=== PATIENT | female | born 1935 | race Caucasian/White ===

== ENCOUNTER 2023-01-07 09:42 | Outpatient (CLI) | payer MEDICARE | END 2023-01-07 09:43 | disposition home or self-care (01) | LOC: RAD-FRANK 09:42 | PROVIDERS: ATTEND Nurse Practitioner Family | DX: M54.50 Low back pain, unspecified (principal); M47.816 Spondylosis without myelopathy or radiculopathy, lumbar region | CPT/HCPCS: 72100 ==

== ENCOUNTER 2023-01-17 09:11 | Observation (INO) | payer MEDICARE ==
[2023-01-17 10:41] LABS: #Basophils 0.1 thou/uL (0.0-0.2); #Eosinphils 0.1 thou/uL (0.0-0.7); #Monocytes 0.6 thou/uL (0.11-0.59); #Neutrophils 3.2 thou/uL (1.40-6.50); %Basophils 0.9 % (0.0-1.0); %Lymphocytes 26.8 % (21.0-51.0); %Monocytes 11.5 % (0.0-10.0); %Neutrophils 58.4 % (42.0-75.0); Hemoglobin 12.6 g/dL (12.0-16.0); Mean Corpuscular HGB CONC 31.5 g/dL (32.0-36.0); Mean Corpuscular Hemoglobin 27.6 pg (27.0-31.0); Mean Corpuscular Volume 87.7 fl (78.0-98.0); Mean Platelet Volume 10.5 fL (7.4-10.4); Platelet Count 171 10x3/uL (130-400); Red Blood Cell (RBC) Count 4.56 mill/uL (4.20-5.40); White Blood Cell (WBC) Count 5.4 10x3/uL (4.8-10.8)
[2023-01-17 11:04] LABS: ALT (SGPT) 9 U/L (8-55); AST (SGOT) 14 U/L (5-34); Albumin 3.4 g/dL (3.4-4.8); Alkaline Phosphatase 55 U/L (40-110); Anion Gap 11 mmol/L (10-20); BUN (Urea Nitrogen) 20 mg/dL (9.8-20.1); Bilirubin, Total 0.4 mg/dL (0.2-1.2); Calc. Creatinine Clearance 0 mL/min (70-130); Calcium 8.9 mg/dL (7.8-10.44); Carbon Dioxide 23 mmol/L (23-31); Chloride 110 mmol/L (98-107); Estimated GFR 60; Globulin 3.1 g/dL (2.4-3.5); Glucose 95 mg/dL (83-110); Potassium 4.4 mmol/L (3.5-5.1); Protein, Total 6.5 g/dL (5.8-8.1); Sodium 140 mmol/L (136-145)
[2023-01-17 11:09] LABS: Troponin I 0.012 ng/mL (< 0.028)
[2023-01-17] MEDS ORDERED: Acetaminophen 325 MG TAB PO PRN (12:51)
[2023-01-17] MEDS ORDERED: cloNIDine 0.1 MG TAB PO PRN (12:52)
[2023-01-17] MEDS ORDERED: NIFEdipine XL 30 MG TAB PO SCH (13:00)
[2023-01-17 13:43] LABS: Free T4 (Free Thyroxine) 1.1 ng/dL (0.70-1.48); Thyroid Stimulating Hormone 3.9374 uIU/mL (0.35-4.94)
[2023-01-17 15:33] LABS: Troponin I Less than 0.010 ng/mL (< 0.028)
[2023-01-17 21:28] VITALS: BMI 25.1
[2023-01-17] MEDS: Heparin 5,000 UNITS/ML VIAL SC SCH (21:37)
[2023-01-17] MEDS: Melatonin 3 MG TAB PO PRN (21:38)
[2023-01-18 05:43] LABS: Anion Gap 11 mmol/L (10-20); BUN (Urea Nitrogen) 17 mg/dL (9.8-20.1); Calc. Creatinine Clearance 41 mL/min (70-130); Carbon Dioxide 23 mmol/L (23-31); Chloride 109 mmol/L (98-107); Potassium 4.4 mmol/L (3.5-5.1); Sodium 139 mmol/L (136-145)
[2023-01-18 05:44] LABS: Calcium 8.9 mg/dL (7.8-10.44); Estimated GFR 63; Glucose 77 mg/dL (83-110)
[2023-01-18] MEDS: NIFEdipine XL 30 MG TAB PO SCH (08:57)
[2023-01-18] MEDS: Heparin 5,000 UNITS/ML VIAL SC SCH ×2 (08:57→21:19)
[2023-01-18] MEDS: Melatonin 3 MG TAB PO PRN (21:18)
[2023-01-19 05:29] LABS: Cardiac Risk 3.3 (Less than 4.5)
[2023-01-19] MEDS ORDERED: fentaNYL 50 mcg/mL 1 mL Vial ONE (07:34)
[2023-01-19] MEDS ORDERED: Midazolam HCl 2 mg/2 ml Vial ONE (07:34)
[2023-01-19] MEDS ORDERED: Lidocaine 1% w/Epinephrine 1:100K 20 ML VIAL ONE (07:35)
[2023-01-19] MEDS ORDERED: Vancomycin HCl 500 MG VIAL ONE ×2 (07:35→07:37)
[2023-01-19] MEDS ORDERED: Lidocaine 1% (PF) 30 ML VIAL ONE (07:35)
[2023-01-19] MEDS ORDERED: Gentamicin 80 MG/2 ML VIAL ONE (07:44)
[2023-01-19] MEDS ORDERED: CEFAZOLIN 1 GM VIAL ONE (07:44)
[2023-01-19] MEDS ORDERED: CEFAZOLIN 2 GM VIAL ONE (07:44)
[2023-01-19] MEDS: Heparin 5,000 UNITS/ML VIAL SC SCH (11:22)
[2023-01-19] MEDS: NIFEdipine XL 30 MG TAB PO SCH (12:17)
[2023-01-19] MEDS ORDERED: Lorazepam 0.5 MG TAB PO PRN (19:07)
[2023-01-19] MEDS: Metoprolol Tartrate 25 MG TAB PO SCH (21:20)
[2023-01-20 05:33] LABS: Anion Gap 12 mmol/L (10-20); BUN (Urea Nitrogen) 18 mg/dL (9.8-20.1); Calc. Creatinine Clearance 45 mL/min (70-130); Calcium 8.9 mg/dL (7.8-10.44); Carbon Dioxide 21 mmol/L (23-31); Chloride 109 mmol/L (98-107); Estimated GFR 71; Glucose 83 mg/dL (83-110); Potassium 3.9 mmol/L (3.5-5.1); Sodium 138 mmol/L (136-145)
[2023-01-20 08:57] VITALS: BP 134/75; TEMP 97.7
[2023-01-20] MEDS: NIFEdipine XL 30 MG TAB PO SCH (09:14)
[2023-01-20] MEDS: Metoprolol Tartrate 25 MG TAB PO SCH (09:15)
== END 2023-01-20 11:35 | disposition home or self-care (01) ==
LOC: ERS 09:11 → ERHOLD 12:48 → 2NO 18:47
PROVIDERS: ADMIT Family Medicine; ATTEND Hospitalist
DX: I49.5 Sick sinus syndrome (principal); I10 Essential (primary) hypertension; I08.1 Rheumatic disorders of both mitral and tricuspid valves; I31.39 Other pericardial effusion (noninflammatory); I45.5 Other specified heart block; R00.2 Palpitations; Z79.899 Other long term (current) drug therapy
CPT/HCPCS: 33208; 71045 ×2; 80048 ×2; 80061; 83880; 84439; 84484 ×2; 85379; 93005 ×3; 93306; 93798; 93971; 96372 ×2; 99285; C1785; C1898 ×2; G0378 ×4; 36415; 80053; 84443; 85025; 93010; J0690; J1580; J1644; J2001; J2250; J3010; J3370

== ENCOUNTER 2023-06-29 10:49 | Outpatient (CLI) | payer MEDICARE | END 2023-06-29 10:50 | disposition home or self-care (01) | LOC: BICRAD 10:49 | PROVIDERS: ATTEND Nurse Practitioner Family | DX: M25.552 Pain in left hip (principal); M25.512 Pain in left shoulder; M16.12 Unilateral primary osteoarthritis, left hip; M19.012 Primary osteoarthritis, left shoulder | CPT/HCPCS: 72170 ==